=== PATIENT | female | born 1995 | race Caucasian/White ===

== ENCOUNTER 2017-04-02 08:17 | Emergency (ER) | payer OTHER ==
[~2017-04-02] VITALS: Ht 165.1 cm; Wt 111.4 kg
[2017-04-02] MEDS ORDERED: NS 1,000 ML IV ONE (10:00)
[2017-04-02] MEDS ORDERED: ONDANSETRON 4MG/2ML VIAL (J2405) IV ONE (10:00)
[2017-04-02 10:37] LABS: ANION GAP 9 MEQ/L (8-16); BLOOD UREA NITROGEN 6 MG/DL (7-18); CALCIUM LEVEL 8.6 MG/DL (8.5-10.1); CARBON DIOXIDE LEVEL 24 MEQ/L (21-32); CHLORIDE LEVEL 104 MEQ/L (98-107); CREATININE FOR GFR 0.74 MG/DL (0.55-1.02); GLUCOSE, FASTING 102 MG/DL (70-105); HCG, SERUM QUANTITATIVE < 1.0 MIU/ML; SODIUM LEVEL 137 MEQ/L (136-145)
[2017-04-02 10:42] LABS: BASO % 0.6 % (0.0-1.0); EOS # 0.1 10^3/uL (0.0-0.50); EOS % 1.1 % (0.0-3.0); LYMPH # 1.2 10^3/uL (1.5-6.5); LYMPH % 16.5 % (24.0-44.0); MEAN CORPUSCULAR HEMOGLOBIN 29.7 pg (27.0-33.0); MEAN CORPUSCULAR HGB CONC 33.9 g/dl (32.0-36.5); MEAN CORPUSCULAR VOLUME 87.6 fl (80.0-96.0); MONO # 0.4 10^3/uL (0.0-0.8); MONO % 5.7 % (0.0-5.0); NEUTROPHILS # 5.3 10^3/uL (1.8-7.7); NEUTROPHILS % 75.8 % (36.0-66.0); PLATELET COUNT, AUTOMATED 340 10^3/uL (150-450); RED CELL DISTRIBUTION WIDTH 12.6 % (11.5-14.5)
[2017-04-02 11:48] VITALS: BP 118/53
--- NOTE | 2017-04-02 11:52 | REP ---
PA and lateral chest: Comparison is 12/30/2014. The lung dick are clear. The cardiac size is normal The esteban, mediastinum, and bony thorax are unremarkable. Impression: Negative PA and lateral chest. Signed by Leo Helm MD 04/02/2017 11:44 A
[2017-04-02] MEDS ORDERED: ZOFR4TAB3 PO (12:04)
[2017-04-02] MEDS ORDERED: TESS100C PO (12:04)
== END 2017-04-02 12:38 | disposition home or self-care (01) ==
LOC: M ED 08:17
DX: J06.9 Acute upper respiratory infection, unspecified (principal); R11.2 Nausea with vomiting, unspecified; E66.9 Obesity, unspecified; Z88.0 Allergy status to penicillin
CPT/HCPCS: 71020; 80048; 84702; 85025; 87804; 96361; 96374; 99283; J2405

== ENCOUNTER 2019-10-22 22:03 | Observation (INO) | payer OTHER ==
[~2019-10-22] VITALS: Ht 165.1 cm; Wt 98.0 kg
[~2019-10-22 22:03] MED LIST: TESS100C PO; ZOFR4TAB14 PO
[2019-10-22] MEDS ORDERED: BUSP10TA PO (22:14)
[2019-10-22] MEDS ORDERED: SERO50TA PO (22:14)
[2019-10-22] MEDS ORDERED: QUET1TAB7 PO (22:14)
[2019-10-22] MEDS ORDERED: SERT50TA29 PO (22:14)
[2019-10-22] MEDS ORDERED: NS 1,000 ML IV ONE (22:30)
[2019-10-22 22:32] LABS: BASO % 0.4 % (0.0-1.0); EOS % 0.5 % (0.0-3.0); HEMATOCRIT 41.7 % (36.0-47.0); HEMOGLOBIN 13.3 g/dl (12.0-15.5); LYMPH # 2.5 10^3/uL (1.5-5.0); MEAN CORPUSCULAR HEMOGLOBIN 26.4 pg (27.0-33.0); MEAN CORPUSCULAR HGB CONC 31.9 g/dl (32.0-36.5); MEAN CORPUSCULAR VOLUME 82.7 fl (80.0-96.0); MONO # 0.5 10^3/uL (0.0-0.8); MONO % 6.6 % (0.0-5.0); NEUTROPHILS # 4.6 10^3/uL (1.5-8.5); NEUTROPHILS % 60.1 % (36.0-66.0); PLATELET COUNT, AUTOMATED 338 10^3/uL (150-450); RED BLOOD COUNT 5.04 10^6/uL (4.00-5.40); WHITE BLOOD COUNT 7.7 10^3/uL (4.0-10.0)
[2019-10-22 22:49] LABS: HCG, SERUM QUALITATIVE NEGATIVE (NEGATIVE)
[2019-10-22 23:04] LABS: ACETAMINOPHEN LEVEL < 2.0 UG/ML (10.0-30.0); ALBUMIN 4.5 GM/DL (3.2-5.2); ALT/SGPT 13 U/L (12-78); BILIRUBIN,DIRECT 0.1 MG/DL (0.0-0.2); BILIRUBIN,TOTAL 0.4 MG/DL (0.2-1.0); BLOOD UREA NITROGEN 7 MG/DL (7-18); CARBON DIOXIDE LEVEL 20 MEQ/L (21-32); CHLORIDE LEVEL 109 MEQ/L (98-107); CPK CREATINE PHOSPHOKINASE 143 U/L (26-192); CREATININE FOR GFR 0.98 MG/DL (0.55-1.30); ETHYL ALCOHOL (ETHANOL) < 0.003 % (0.000-0.010); GLOMERULAR FILTRATION RATE > 60.0 (>60); GLUCOSE, FASTING 95 MG/DL (70-100); POTASSIUM SERUM 3.6 MEQ/L (3.5-5.1); SALICYLATE LEVEL < 1.7 MG/DL (5.0-30.0); SODIUM LEVEL 141 MEQ/L (136-145); THYROID STIMULATING HORMONE 0.846 uIU/ML (0.358-3.740); TOTAL PROTEIN 7.9 GM/DL (6.4-8.2)
[2019-10-23] MEDS: NS 1,000 ML IV SCH ×5 (00:27→23:55)
[2019-10-23] MEDS ORDERED: ONDANSETRON 4MG/2ML VIAL (J2405 PER 1MG) IV ONE (00:45)
[2019-10-23] MEDS ORDERED: ONDANSETRON 4MG/2ML VIAL (J2405 PER 1MG) IV PRN (00:45)
[2019-10-23 00:59] LABS: AMPHETAMINES LEVEL URINE NEGATIVE (NEGATIVE); BARBITURATES URINE NEGATIVE (NEGATIVE); BENZODIAZEPINES URINE NEGATIVE (NEGATIVE); CANNABINOIDS URINE NEGATIVE (NEGATIVE); COCAINE METABOLITE URINE NEGATIVE (NEGATIVE); METHADONE URINE NEGATIVE (NEGATIVE); OPIATES URINE NEGATIVE (NEGATIVE); PHENCYCLIDINE URINE NEGATIVE (NEGATIVE)
[2019-10-23 02:10] VITALS: BP 126/70
[2019-10-23 06:00] VITALS: BP 125/58
--- NOTE | 2019-10-23 08:07 | HPE ---
DATE OF ADMISSION: 10/22/2019 CHIEF COMPLAINT: Drug overdose. HISTORY OF PRESENT ILLNESS: 23-year-old female with history of depression who presented to the emergency room after ingesting thirty tablets of Zoloft 50 mg each as well as a handful of ibuprofen unknown amount at around 9:30 p.m. this evening. The patient says, "I am just upset about everything" and speaking about her boyfriend who is the father of one of her two children and says that things have been tough. The patient called the suicide hot line at 6:00 p.m. this evening and was on the phone with them until 8:00 p.m. while she was driving around with the two children in the back seat of her car. She then completed the call and proceeded to go to her home. The state police and local police were alerted and they had arrived at the residence. She was found in the bedroom after ingesting thirty tablets of Zoloft and ibuprofen. The patient says that she was just trying to go to sleep, took her medications, the whole bottle of Zoloft. She says that she had some nausea and vomiting upon arrival of the EMS and to coming into the ER. The patient denies any homicidal tendencies. EKG showed no prolonged QT and was sinus rhythm with a ventricular rate of 95. Poison Control recommended overnight admission, telemetry monitoring, as well as, IV fluid hydration. The patient denied fever or chills. Complained of increase in her low mood and depression due to "everything". Denied dysuria, urgency or frequency, fever, flank pain, chills. The hospitalist was asked to admit for suicidal attempt due to drug ingestion of Zoloft as well as ibuprofen. PAST MEDICAL HISTORY: 1. Depression. 2. Pseudoseizures. PAST SURGICAL HISTORY: 1. section. 2. Cholecystectomy. 3. Adenoidectomy. 4. Tonsillectomy. 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 HOME MEDICATIONS: - Tessalon Perles 200 mg every 8 hours as needed - buspirone 10 mg daily - Zofran 4 mg every 6 hours as needed - quetiapine fumarate 25 mg daily - Seroquel 50 mg daily - Sertraline 50 mg daily - ibuprofen as needed FAMILY HISTORY: Mother and father are alive, unknown medical problems. REVIEW OF SYSTEMS: Per history of present illness (HPI). 12 point system otherwise negative. PHYSICAL EXAMINATION: Temperature 98.3, pulse 100, respiratory rate 18, blood pressure 129/60, 98% on room air. Generally, the patient is awake, alert and oriented to person, place and time. Answering questions appropriately. She is cooperative, in no respiratory distress. No use of respiratory accessory muscles. No conversational dyspnea. No jugular venous distention (JVD) or thyromegaly. No cervical lymphadenopathy. She is currently retching. Lungs are clear to auscultation. No wheezing, rales or rhonchi. Heart: S1, S2. Sinus rhythm. Abdomen: Soft. Nontender. Nondistended. Positive bowel sounds. Extremities: No cyanosis, clubbing or pitting edema. EKG: Sinus rhythm, ventricular rate 95 QTc 406. LABORATORY DATA: White count 7.7, hemoglobin 13, hematocrit 41, platelet count 338. Sodium 141, potassium 3.6, chloride 109, bicarbonate 20, BUN 7, creatinine 0.98, glucose 95, calcium 9, total bilirubin 0.4, direct bilirubin 0.1, AST 10, ALT 13, alkaline phosphatase 74, total CK 143, total protein 7.9, albumin 4.5, TSH 0.846. HCG is negative. Toxicology screen with salicylate less than 1.7, acetaminophen less than 2, ethyl alcohol less than 0.003, otherwise negative. ASSESSMENT AND PLAN: This is a 23-year-old female with history of depression, pseudoseizures, adenoidectomy, tonsillectomy, and cholecystectomy, who presents after speaking with a suicide hot line for 2 hours and subsequent ingestion of 30 tablets of Zoloft 50 mg each as well as ibuprofen unknown amount. EKG was unremarkable. The patient is being admitted for suicide attempt due to intentional drug overdose. IMPRESSION: 1. Suicide attempt with intentional drug overdose due to severe depression. The patient has no homicidal tendencies. She is currently on suicidal precautions with a sitter. She is on IV fluids. Poison Control has been contacted. She is admitted to telemetry. No changes in EKG at this time. 2. Severe depression. Off of the Zoloft for now due to recent intentional drug overdose. Will defer to psychiatrist once medically stable and [facility] admission. 3. History of pseudoseizures. No acute episodes. 4. Deep vein thrombosis (DVT) prophylaxis with compression stockings. CODE STATUS: Full code. MTDD
--- NOTE | 2019-10-23 11:46 | MHCRPDOC ---
[facility] Consultation Consultation Consult Jonathan eMlendez MRN: N/A Date of : N/A Date of Service: 10/23/2019 Chief Complaint Consultation for safety. History of Present Illness The patient a 23-year-old woman presents after overdosing on trazodone and Prozac among many other medications. She reports having difficulty with her boyfriend and her several children. 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 She continues to report that she has difficulty coping with this and has become more stressed and unable to sleep. She reports she took the overdose suddenly and then sought care. Review Of Systems Depression: As above. Anxiety: As above. Laila: The patient denies any episodes of euphoria/dysphoria associated with decreased need for sleep, hedonism, talkatively or impulsivity lasting longer than 5 days. Psychotic: The patient denies any experiences of auditory or visual hallucinations. They deny any episodes of paranoia or delusional thinking in the past Trauma: The patient denies any traumatic events associated with nightmares or intrusive thoughts. Borderline: Not screened at this time. Past Psychiatric History Has a reported history of 1 previous admission [facility] when she was younger for an overdose, goes to [facility] and sees a therapist and a photography colorist. Hstory reveals a more recent admission to [facility]. Family Psychiatric History The patient denies/is unaware any history of mental health history including addictions and suicide. 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 She does not work. She had previously worked in various jobs and has stopped. She graduated high school. No legal history. Denies any history of trauma or abuse. Denies any significant substance use, tobacco, cannabis or otherwise. Medical History No past medical history that is significant at this time, currently being worked up for potential seizure disorder. Allergies See below Mental Status Examination General: Well dressed with good hygiene Speech: Spontaneous and fluid Thought processes: Linear and logical MSK: Smooth and coordinated gait, no signs of tremors or involuntary orofacial movements Thought content: Interested in avoiding admission Abstract reasoning, and computation: Intact Description of associations: Intact Description of abnormal or psychotic thoughts: Denies any suicidal or homicidal ideation. Denies any auditory or visual hallucinations. Does not appear to be responding to internal stimuli. Does not appear to be endorsing any bizarre or paranoid ideation. Judgment: Limited Insight: Limited Orientation: Alert and orientated 3 Cognition: Grossly normal Recent and remote memory: Intact Attention span and concentration: Intact Fund of knowledge: Adequate Mood: "okay" Affect: Mildly dysthymic Diagnoses Unspecified depressive disorder. Assessment and Plan Recommend at this time for patient to be admitted to /inpatient mental health once she is medically cleared. She will need her EEG and other inpatient workup completed prior to admission, however, she will likely be under 9.39 legal status that will need to be filled up by the medical attending prior to her being placed in . She is not necessarily interested in treatment, however, it appears that her poor insight likely led her to the situation. Disposition Admission to [facility] once she is medically cleared. Time Spent 30 minutes. Vital Signs Vital Signs Date Time Temp Pulse Resp B/P (MAP) Pulse Ox O2 Delivery O2 Flow Rate FiO2 10/23/19 06:00 98.0 74 14 125/58 (80) 96 Room Air Laboratory Data 24H Labs Laboratory Tests 2 10/22/19 22:25: Immature Granulocyte % (Auto) 0.4, Neutrophils (%) (Auto) 60.1, Lymphocytes (%) (Auto) 32.0, Monocytes (%) (Auto) 6.6H, Eosinophils (%) (Auto) 0.5, Basophils (%) (Auto) 0.4, Neutrophils # (Auto) 4.6, Lymphocytes # (Auto) 2.5, Monocytes # (Auto) 0.5, Eosinophils # (Auto) 0.0, Basophils # (Auto) 0.0, Nucleated Red Blood Cells % (auto) 0.0, Anion Gap 12, Glomerular Filtration Rate > 60.0, Calcium Level 9.0, Total Bilirubin 0.4, Direct Bilirubin 0.1, Aspartate Amino Transf (AST/SGOT) 10, Alanine Aminotransferase (ALT/SGPT) 13, Alkaline Phosphatase 74, Total Creatine Kinase 143, Total Protein 7.9, Albumin 4.5, Albumin/Globulin Ratio 1.32, Thyroid Stimulating Hormone (TSH) 0.846, Human Chorionic Gonadotropin, Qual NEGATIVE, Salicylates Level < 1.7L, Urine Opiates Screen NEGATIVE, Urine Methadone Screen NEGATIVE, Acetaminophen Level < 2.0L, Urine Barbiturates Screen NEGATIVE, Urine Phencyclidine Screen NEGATIVE, Urine Amphetamines Screen NEGATIVE, Urine Benzodiazepines Screen NEGATIVE, Urine Cocaine Metabolite Screen NEGATIVE, Urine Cannabinoids Screen NEGATIVE, Ethyl Alcohol Level < 0.003 10/22/19 22:33: Bedside Glucose (Misc Panel) 96 10/23/19 06:19: Magnesium Level 2.0 Home Medications Current Medications Current Medications Medications (Trade) Dose Ordered Sig/Mera Route PRN Reason Start Time Stop Time Status Last Admin Dose Admin Home Med (Med Rec Complete!) ASDIRECTED XX 10/23/19 02:15 10/23/19 02:16 DC Ondansetron HCl (ZOFRAN INJection) 4 mg Q4HP PRN IV NAUSEA OR VOMITING 10/23/19 00:45 Sodium Chloride 1,000 ml @ 150 mls/hr Q6H40M IV 10/23/19 00:15 10/23/19 06:28 Scheduled Buspirone HCl (Buspirone HCl) 10 Mg Tablet, 10 MG PO BID, (Reported) Quetiapine Fumarate (Quetiapine Fumarate) 25 Mg Tablet, 25 MG PO QHS, (Reported) Sertraline HCl (Sertraline HCl) 50 Mg Tablet, 50 MG PO DAILY, (Reported) Allergies Coded Allergies: escitalopram (Verified Allergy, Severe, 10/22/19) Penicillins (Unverified Allergy, Unknown, 10/22/19) SAUL LUJAN DO Oct 23, 2019 11:46
--- NOTE | 2019-10-23 13:42 | ECGEPIP ---
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 No significant change compared with 10/22/2019 at 2229 hrs. Electronically Signed on 10-23-2019 13:41:56 EDT by Benito Faye
[2019-10-23 14:00] VITALS: BP 108/63
--- NOTE | 2019-10-23 18:13 | REPVR ---
PROCEDURE INFORMATION: Exam: CT Head Without Contrast Exam date and time: 10/23/2019 6:03 PM Age: 23 years old Clinical indication: Altered mental status/memory loss; Additional info: Tonic clonic movements with intermittent AMS TECHNIQUE: Imaging protocol: Computed tomography of the head without contrast. Radiation optimization: All CT scans at this facility use at least one of these dose optimization techniques: automated exposure control; mA and/or kV adjustment per patient size (includes targeted exams where dose is matched to clinical indication); or iterative reconstruction. COMPARISON: No relevant prior studies available. FINDINGS: Brain: No acute intracranial hemorrhage, cerebral edema, or midline shift. Ventricles: No hydrocephalus. Bones/joints: No acute fracture. Sinuses: No acute sinusitis. Mastoid air cells: Visualized mastoid air cells are well aerated. Soft tissues: Unremarkable. IMPRESSION: No acute intracranial abnormality. Electronically signed by: Lawrence Moore On 10/23/2019 18:13:17 PM
[2019-10-23 18:34] LABS: MEAN CORPUSCULAR HEMOGLOBIN 26.5 pg (27.0-33.0); MEAN CORPUSCULAR VOLUME 82.9 fl (80.0-96.0); PLATELET COUNT, AUTOMATED 266 10^3/uL (150-450); RED BLOOD COUNT 4.22 10^6/uL (4.00-5.40)
[2019-10-23 18:37] LABS: HEMOGLOBIN 11.2 g/dl (12.0-15.5)
[2019-10-23 18:52] LABS: BLOOD UREA NITROGEN 6 MG/DL (7-18); CALCIUM LEVEL 8.4 MG/DL (8.5-10.1); CARBON DIOXIDE LEVEL 22 MEQ/L (21-32); CHLORIDE LEVEL 115 MEQ/L (98-107); CREATININE FOR GFR 0.84 MG/DL (0.55-1.30); GLOMERULAR FILTRATION RATE > 60.0 (>60); GLUCOSE, FASTING 103 MG/DL (70-100); MAGNESIUM LEVEL 1.9 MG/DL (1.8-2.4); POTASSIUM SERUM 3.7 MEQ/L (3.5-5.1); SODIUM LEVEL 142 MEQ/L (136-145)
--- NOTE | 2019-10-23 19:15 | IPNPDOC ---
Text Note Date of Service The patient was seen on 10/23/19. NOTE S: Pt examined at bedside. Doing well this am and stable with sitter in room. Denied thoughts to harm self and others, and states she is "tired of not feeling better" and reports she ingested 30 pills of her Seroquel, and 1 bottle of Motrin to kill herself. 4-month old and 3 year old kids were at home. Pt called suicide hotline to inform them of her wishes for the kids. Police brought her to the hospital, and other police remained behind with her children until her boyfriend arrived to care for the children. Was Pending dc to [facility], but noted to have spastic activity later in the day. CT head negative. EEG & neuro consult pending. PE: Vitals: see below General: NAD, A&Ox3, resting comfortably HEENT: NCAT, EOMI, anicteric sclera, MMM CV: RRR, no murmurs or clicks or rub. No edema RESP: CTAB, no w/r/r/ ABD: soft, NT, ND. Benign EXTREMITIES: 2+ radial pulses b/l, able to move all extremities NEURO: no focal deficits or acute changes PSYCH: depressed mood, flat affect A/P: This is 23-year-old female on psych meds at home (BuSpar, quetiapine, sertraline) who tried to overdose as a suicide attempt but taking 30 pills of her Seroquel and a bottle of Motrin. She is brought in by police and stable since admission, was pending dc to [facility], but later in the day found to have spastic movements. 1. Suicide attempt - 30 pills of her Seroquel and a bottle of Motrin - tox screen & EToh negative. Supportive care with IVF - Poison control reportedly notified on admission - Home meds include BuSpar, quetiapine, sertraline - On suicide precautions, sitter at bedside -We'll discharge to [facility] when medically stable 2. Spastic activity -Noted to have tonic-clonic like movements while awaiting discharge to [facility] - hx of pseudoseizures -We'll hold [facility] discharge until seen by neurology. - Dr. Ang consulted, appreciate input - Head CT negative. EEg pending - r/o seizure - placed on seizure precautions; neurochecks DVT ppx: mechanical DISPO: pending neuro c/s & clinical improvement. D/C to [facility] when stable. VS,Fishbone, I+O VS, Fishbone, I+O Laboratory Tests 10/22/19 22:25 10/23/19 18:19 Vital Signs Date Time Temp Pulse Resp B/P (MAP) Pulse Ox O2 Delivery O2 Flow Rate FiO2 10/23/19 14:00 99.1 99 20 108/63 (78) 98 Room Air I&O- Last 24 Hours up to 6 AM 10/23/19 06:00 Intake Total 1460 ml Output Total 100 ml Balance 1360 ml GME ATTESTATION GME ATTESTATION My faculty preceptor for this patient encounter was physically present during the encounter and was fully available. All aspects of the patient interview, examination, medical decision making process, and medical care plan development were reviewed and approved by the faculty preceptor. The faculty preceptor is aware and concurs with the plan as stated in the body of this note and will attest to such by his/her cosignature. ATTENDING NOTE I, Radha Alvarado, have independently examined this patient and performed my own physical exam, as well as reviewed the documentation and edited where necessary. I have discussed in detail with the resident / student the findings and plan of treatment as documented by the resident / student and edited their note. I agree with their findings and treatment plan and have edited their documentation. We were going to discharge her to the [facility] but she had seizure like activity this afternoon that prompted more investigations but later, she reported a history of pseudoseizures. In my discussion with Dr. Ang, will get a spot EEG and thereafter, proceed with [facility] discharge unless epileptiform activity is identified that justifies pharmacotherapy. SHIRLENE TOLBERT DO Oct 23, 2019 19:15 RADHA ALVARADO MD Oct 23, 2019 19:40
--- NOTE | 2019-10-23 20:35 | ECGEPIP ---
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
[2019-10-23 22:00] VITALS: BP 109/64
[2019-10-23] MEDS ORDERED: RAMELTEON 8 MG TAB (ROZEREM) PO PRN (23:45)
[2019-10-24 00:20] LABS: HEMATOCRIT 33.2 % (36.0-47.0); HEMOGLOBIN 10.7 g/dl (12.0-15.5)
[2019-10-24 06:00] VITALS: BP 108/65
[2019-10-24 06:16] LABS: HEMATOCRIT 32.1 % (36.0-47.0); HEMOGLOBIN 10.1 g/dl (12.0-15.5); MEAN CORPUSCULAR HEMOGLOBIN 26.4 pg (27.0-33.0); MEAN CORPUSCULAR HGB CONC 31.5 g/dl (32.0-36.5); MEAN CORPUSCULAR VOLUME 83.8 fl (80.0-96.0); PLATELET COUNT, AUTOMATED 246 10^3/uL (150-450); RED BLOOD COUNT 3.83 10^6/uL (4.00-5.40); WHITE BLOOD COUNT 5.4 10^3/uL (4.0-10.0)
[2019-10-24 06:37] LABS: BLOOD UREA NITROGEN 7 MG/DL (7-18); CALCIUM LEVEL 8.2 MG/DL (8.5-10.1); CARBON DIOXIDE LEVEL 21 MEQ/L (21-32); CHLORIDE LEVEL 115 MEQ/L (98-107); CREATININE FOR GFR 0.76 MG/DL (0.55-1.30); GLOMERULAR FILTRATION RATE > 60.0 (>60); GLUCOSE, FASTING 97 MG/DL (70-100); POTASSIUM SERUM 3.6 MEQ/L (3.5-5.1); SODIUM LEVEL 143 MEQ/L (136-145)
[2019-10-24] MEDS: NS 1,000 ML IV SCH ×2 (10:30→15:21)
[2019-10-24 14:00] VITALS: BP 106/73
--- NOTE | 2019-10-24 19:00 | DS.PDOC ---
Discharge Summary General Date of Admission Oct 22, 2019 at 22:04 Date of Discharge 10/24/2019 Attending Physician: YOUSIF ALVARADO MD Specialist/Consultants Involve: SAUL LUJAN DO Discharge Summary PROCEDURES PERFORMED DURING STAY: None. DISCHARGE DIAGNOSES: 1. Suicide attempt 2. Spastic activity 3. Hx of depression/anxiety 4. Hx of pseudoseizures HISTORY OF PRESENT ILLNESS: This is 23-year-old female on psych meds at home (BuSpar, quetiapine, sertraline) who tried to overdose as a suicide attempt by taking 30 pills of her Seroquel and a bottle of Motrin. Was admitted per discussions with poison control and for monitoring. Sitter at bedside. HOSPITAL COURSE: When assess next am, she denied thoughts to harm self and others, and stated she is "tired of not feeling better" and admitted to ingesting the meds in attempt to kill herself. Per pt: 4-month old and 3 year old kids were at home; pt called suicide hotline to inform them of her wishes for the kids; Police brought her to the hospital, and other police remained behind with her children until her boyfriend arrived to care for the children. Pt was given supportive care & had negative tox screen & EtOH level. Pt was otherwise hemodynamically stable and was pending dc to [facility], but noted to have brief spastic activity later in the day. Per discussions with Neurology, head imaging was done, CT head negative, and pt refused to get EEG done, but admitted to a hx of pseudoseizure. She remained stable with no further episodes of spasticity. She was medically stable & sent to [facility]. DISCHARGE MEDICATIONS: Please see below. ALLERGIES: Please see below. PHYSICAL EXAMINATION ON DISCHARGE: Vitals: see below General: NAD, A&Ox3, sitting comfortably speaking full sentences HEENT: NCAT, EOMI, anicteric sclera, MMM CV: RRR, no murmurs or clicks or rub. No edema RESP: CTAB, no w/r/r/ ABD: soft, NT, ND. Benign EXTREMITIES: 2+ radial pulses b/l, able to move all extremities NEURO: no focal deficits or acute changes PSYCH: depressed mood, flat affect, agitated LABORATORY DATA: Please see below. IMAGING: * 10/23/[address]: No acute intracranial abnormality. PROGNOSIS: good ACTIVITY: As tolerated. DIET: as tolerated DISPOSITION: [facility] DISCHARGE INSTRUCTIONS: 1. Follow-up with PCP within a week 2. Return to ER for emergency DISCHARGE CONDITION: Stable. TIME SPENT ON DISCHARGE: Greater than 35 minutes. Vital Signs/I&Os Vital Signs Date Time Temp Pulse Resp B/P (MAP) Pulse Ox O2 Delivery O2 Flow Rate FiO2 10/24/19 14:00 98.0 64 17 106/73 (84) 98 Room Air I&O- Last 24 Hours up to 6 AM 10/24/19 05:59 Intake Total 6180 ml Output Total 900 ml Balance 5280 ml Laboratory Data Labs 24H Laboratory Tests 2 10/24/19 05:41: Nucleated Red Blood Cells % (auto) 0.0, Anion Gap 7L, Glomerular Filtration Rate > 60.0, Calcium Level 8.2L CBC/BMP Laboratory Tests 10/24/19 00:02 10/24/19 05:41 Discharge Medications Scheduled Buspirone HCl (Buspirone HCl) 10 Mg Tablet, 10 MG PO BID for anxiety Quetiapine Fumarate (Quetiapine Fumarate) 25 Mg Tablet, 25 MG PO QHS for mood Sertraline HCl (Sertraline HCl) 50 Mg Tablet, 50 MG PO DAILY for mood Scheduled PRN Hydroxyzine HCl (Hydroxyzine HCl) 25 Mg Tablet, 25 MG PO Q4HP PRN for ANXIETY Trazodone HCl (Trazodone HCl) 50 Mg Tablet, 50 MG PO QHSP PRN for INSOMNIA Allergies Coded Allergies: escitalopram (Verified Allergy, Severe, 10/22/19) Penicillins (Unverified Allergy, Unknown, 10/22/19) GME ATTESTATION GME ATTESTATION My faculty preceptor for this patient encounter was physically present during the encounter and was fully available. All aspects of the patient interview, examination, medical decision making process, and medical care plan development were reviewed and approved by the faculty preceptor. The faculty preceptor is aware and concurs with the plan as stated in the body of this note and will attest to such by his/her cosignature. SHIRLENE TOLBERT DO Oct 24, 2019 19:00
== END 2019-10-24 17:00 ==
LOC: EDBD 22:03 → M ED 22:03 → M ED INP 22:04 → ENRESERVTM 10-23 01:36 → ENRESERVDT 10-23 01:36 → M MSPAV 10-23 02:09
PROVIDERS: ADMIT General Practice; ATTEND Internal Medicine
DX: T43.592A Poisoning by other antipsychotics and neuroleptics, intentional self-harm, initial encounter (principal); T39.312A Poisoning by propionic acid derivatives, intentional self-harm, initial encounter; R25.8 Other abnormal involuntary movements; F41.9 Anxiety disorder, unspecified; F32.9 Major depressive disorder, single episode, unspecified; G47.00 Insomnia, unspecified; J45.909 Unspecified asthma, uncomplicated; Z79.899 Other long term (current) drug therapy; Z88.0 Allergy status to penicillin; Z88.8 Allergy status to other drugs, medicaments and biological substances
CPT/HCPCS: 36415; 70450; 80048; 80076; 80307; 82550; 83735; 84443; 84703; 85014; 85018; 85025; 85027; 93005; 93041; 94760; 96361; 96374; 96376; 99285; G0480; J2405

== ENCOUNTER 2019-10-24 14:47 | Inpatient (IN) | payer OTHER ==
[~2019-10-24 14:47] MED LIST changes: +BUSP10TA PO; +QUET1TAB7 PO; +SERO50TA PO; +SERT50TA29 PO
[2019-10-24] MEDS ORDERED: ACETAMINOPHEN TAB 650MG DOSE (2X325MG) PO PRN (15:00)
[2019-10-24] MEDS ORDERED: MOM 30ML SUSPENSION UDC PO PRN (15:00)
[2019-10-24] MEDS ORDERED: MAALOX 30 ML SUSP *UDC PO PRN (15:00)
--- NOTE | 2019-10-24 17:11 | IPNPDOC ---
Text Note Date of Service The patient was seen on 10/24/19. NOTE code 25 was called in to [facility] as patient was lying on the floor very agitated, pulling and hitting staff, patient was seen and evaluated as patient is very agitated and is risk to herself and others. four points restraints were ordered. The nursing staff called the on-call psychiatrist regarding patient's updated status. Pharmacological intervention as per psych. THO BLACKWELL MD Oct 24, 2019 17:11
[2019-10-24 17:30] VITALS: BP 151/74
[2019-10-24 17:45] VITALS: BP 150/83
[2019-10-24 18:00] VITALS: BP 148/83
[2019-10-24 18:15] VITALS: BP 145/81
[2019-10-24 18:30] VITALS: BP 140/72
[2019-10-24 18:45] VITALS: BP 142/74
[2019-10-25] MEDS: traZODone 50 MG TAB PO PRN ×2 (00:24→23:08)
[2019-10-25 06:20] VITALS: BP 129/64
[2019-10-25] MEDS ORDERED: SERTRALINE HCL 50 MG TAB PO SCH (09:00)
[2019-10-25 14:15] VITALS: BP 145/71
[2019-10-25 16:10] VITALS: BP 117/58
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
[2019-10-25] MEDS: hydrOXYzine 25 MG TAB PO PRN (19:09)
[2019-10-25] MEDS: busPIRone 10 MG TAB PO SCH (20:31)
[2019-10-25] MEDS: QUEtiapine FUMARATE 25 MG TAB PO SCH (23:08)
[2019-10-26 06:29] VITALS: BP 119/74
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
[2019-10-26] MEDS: busPIRone 10 MG TAB PO SCH ×2 (08:40→21:42)
[2019-10-26] MEDS: SERTRALINE HCL 50 MG TAB PO SCH (08:40)
[2019-10-26] MEDS: hydrOXYzine 25 MG TAB PO PRN (11:25)
[2019-10-26 16:03] VITALS: BP 132/65
[2019-10-26] MEDS: QUEtiapine FUMARATE 25 MG TAB PO SCH (21:42)
[2019-10-26] MEDS: traZODone 50 MG TAB PO PRN (21:43)
--- NOTE | 2019-10-27 02:17 | MHIPN ---
DATE: 10/26/2019 The patient today actually refused to talk to me, and so I am not able to complete an evaluation.
[2019-10-27 06:30] VITALS: BP 117/58
[2019-10-27] MEDS: SERTRALINE HCL 50 MG TAB PO SCH (09:00)
[2019-10-27] MEDS: busPIRone 10 MG TAB PO SCH (09:00)
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
[2019-10-27] MEDS ORDERED: SERT50TA29 PO (10:20)
[2019-10-27] MEDS ORDERED: HYDR-3363 PO (10:20)
[2019-10-27] MEDS ORDERED: TRAZ-252 PO (10:20)
[2019-10-27] MEDS ORDERED: QUET1TAB7 PO (10:20)
[2019-10-27] MEDS ORDERED: BUSP10TA PO (10:20)
[2019-10-27 15:00] VITALS: BP 133/96
== END 2019-10-27 15:40 | disposition home or self-care (01) | DRG 754 ==
LOC: M PSY 17:00
PROVIDERS: ADMIT Psychiatry & Neurology Addiction Medicine; ATTEND Psychiatry & Neurology Addiction Medicine
DX: F32.9 Major depressive disorder, single episode, unspecified (principal); F60.3 Borderline personality disorder; Z79.899 Other long term (current) drug therapy; Z88.0 Allergy status to penicillin; Z88.8 Allergy status to other drugs, medicaments and biological substances

== ENCOUNTER 2019-12-30 18:38 | Emergency (ER) | payer OTHER ==
[~2019-12-30] VITALS: Ht 165.1 cm; Wt 105.3 kg
[~2019-12-30 18:38] MED LIST changes: +HYDR-3363 PO; +TRAZ-252 PO
[2019-12-30 18:39] VITALS: BP 121/76
[2019-12-30] MEDS ORDERED: BACT800T5 PO (19:02)
[2019-12-30] MEDS ORDERED: BACTRIM 160MG/800MG DS TAB PO ONE (19:15)
== END 2019-12-30 19:16 | disposition home or self-care (01) ==
LOC: M ED 18:38
DX: L03.115 Cellulitis of right lower limb (principal); Z88.0 Allergy status to penicillin; Z88.8 Allergy status to other drugs, medicaments and biological substances; R56.9 Unspecified convulsions; J45.909 Unspecified asthma, uncomplicated; K21.9 Gastro-esophageal reflux disease without esophagitis; F41.9 Anxiety disorder, unspecified; F32.9 Major depressive disorder, single episode, unspecified; Z91.5 Personal history of self-harm; Z79.899 Other long term (current) drug therapy

== ENCOUNTER 2020-01-06 03:04 | Emergency (ER) | payer OTHER ==
[~2020-01-06] VITALS: Ht 165.1 cm; Wt 110.3 kg
[~2020-01-06 03:04] MED LIST changes: +BACT800T5 PO
[2020-01-06 03:36] LABS: BASO % 0.5 % (0.0-1.0); EOS # 0.1 10^3/uL (0.0-0.5); EOS % 1.8 % (0.0-3.0); HEMATOCRIT 40.6 % (36.0-47.0); HEMOGLOBIN 13.1 g/dl (12.0-15.5); LYMPH # 2.5 10^3/uL (1.5-5.0); MEAN CORPUSCULAR HEMOGLOBIN 27.8 pg (27.0-33.0); MEAN CORPUSCULAR HGB CONC 32.3 g/dl (32.0-36.5); MEAN CORPUSCULAR VOLUME 86.2 fl (80.0-96.0); MONO # 0.5 10^3/uL (0.0-0.8); MONO % 8.3 % (0.0-5.0); NEUTROPHILS # 3.2 10^3/uL (1.5-8.5); NEUTROPHILS % 50.1 % (36.0-66.0); PLATELET COUNT, AUTOMATED 304 10^3/uL (150-450); RED BLOOD COUNT 4.71 10^6/uL (4.00-5.40); WHITE BLOOD COUNT 6.3 10^3/uL (4.0-10.0)
[2020-01-06 04:03] LABS: ALT/SGPT 19 U/L (12-78); BLOOD UREA NITROGEN 12 MG/DL (7-18); CALCIUM LEVEL 9.4 MG/DL (8.5-10.1); CARBON DIOXIDE LEVEL 28 MEQ/L (21-32); CHLORIDE LEVEL 109 MEQ/L (98-107); CREATININE FOR GFR 1.05 MG/DL (0.55-1.30); GLOMERULAR FILTRATION RATE > 60.0 (>60); GLUCOSE, FASTING 97 MG/DL (70-100); POTASSIUM SERUM 4.6 MEQ/L (3.5-5.1); SODIUM LEVEL 144 MEQ/L (136-145)
[2020-01-06 04:04] LABS: ALBUMIN 3.9 GM/DL (3.2-5.2); BILIRUBIN,DIRECT < 0.1 MG/DL (0.0-0.2); BILIRUBIN,TOTAL 0.1 MG/DL (0.2-1.0); ETHYL ALCOHOL (ETHANOL) 0.128 % (0.000-0.010); TOTAL PROTEIN 7.8 GM/DL (6.4-8.2)
[2020-01-06 05:16] LABS: AMPHETAMINES LEVEL URINE NEGATIVE (NEGATIVE); BARBITURATES URINE NEGATIVE (NEGATIVE); BENZODIAZEPINES URINE NEGATIVE (NEGATIVE); CANNABINOIDS URINE NEGATIVE (NEGATIVE); COCAINE METABOLITE URINE NEGATIVE (NEGATIVE); METHADONE URINE NEGATIVE (NEGATIVE); OPIATES URINE NEGATIVE (NEGATIVE); PHENCYCLIDINE URINE NEGATIVE (NEGATIVE)
[2020-01-06 05:32] VITALS: BP 118/62
== END 2020-01-06 05:43 | disposition home or self-care (01) ==
LOC: M ED 03:04
DX: F10.120 Alcohol abuse with intoxication, uncomplicated (principal); F41.9 Anxiety disorder, unspecified; F32.9 Major depressive disorder, single episode, unspecified; Z79.899 Other long term (current) drug therapy; Z88.0 Allergy status to penicillin; Z88.8 Allergy status to other drugs, medicaments and biological substances
CPT/HCPCS: 36415; 80048; 80076; 80307; 84443; 85025; 93041; 94760; 99284; G0480

== ENCOUNTER → 2020-05-14 | Outpatient (REF) | payer OTHER ==
[2020-05-14 17:20] LABS: BASO % 0.8 % (0.0-1.0); EOS # 0.1 10^3/uL (0.0-0.5); EOS % 1.9 % (0.0-3.0); HEMATOCRIT 40.3 % (36.0-47.0); HEMOGLOBIN 12.9 g/dl (12.0-15.5); LYMPH # 1.7 10^3/uL (1.5-5.0); LYMPH % 34.4 % (24.0-44.0); MEAN CORPUSCULAR HEMOGLOBIN 28.5 pg (27.0-33.0); MONO # 0.4 10^3/uL (0.0-0.8); MONO % 7.7 % (0.0-5.0); NEUTROPHILS # 2.7 10^3/uL (1.5-8.5); PLATELET COUNT, AUTOMATED 284 10^3/uL (150-450); RED BLOOD COUNT 4.53 10^6/uL (4.00-5.40); WHITE BLOOD COUNT 4.8 10^3/uL (4.0-10.0)
[2020-05-14 17:35] LABS: ALBUMIN 3.7 GM/DL (3.2-5.2); ALT/SGPT 24 U/L (12-78); BILIRUBIN,TOTAL 0.3 MG/DL (0.2-1.0); BLOOD UREA NITROGEN 12 MG/DL (7-18); CALCIUM LEVEL 8.7 MG/DL (8.5-10.1); CARBON DIOXIDE LEVEL 25 MEQ/L (21-32); CHLORIDE LEVEL 107 MEQ/L (98-107); CHOLESTEROL LEVEL 204 MG/DL (<200); CHOLESTEROL RISK RATIO 4.636 (<5); CREATININE FOR GFR 0.88 MG/DL (0.55-1.30); GLOMERULAR FILTRATION RATE > 60.0 (>60); GLUCOSE, FASTING 87 MG/DL (70-100); HDL CHOLESTEROL 44 MG/DL (>40); LDL CHOLESTEROL 142 MG/DL (<100); NON-HDL-C 160 MG/DL; POTASSIUM SERUM 4.4 MEQ/L (3.5-5.1); SODIUM LEVEL 139 MEQ/L (136-145); TRIGLYCERIDES LEVEL 89 MG/DL (<150)
== END ==
LOC: M LAB REF 16:43
PROVIDERS: ATTEND Physician Assistant
DX: G40.909 Epilepsy, unspecified, not intractable, without status epilepticus (principal); Z68.41 Body mass index [BMI] 40.0-44.9, adult

== ENCOUNTER → 2020-06-28 | Outpatient (REF) | payer OTHER ==
[2020-06-28 13:16] LABS: HCG, SERUM QUALITATIVE POSITIVE (NEGATIVE)
== END ==
LOC: M LAB REF 12:23
PROVIDERS: ATTEND Physician Assistant Medical
DX: Z32.00 Encounter for pregnancy test, result unknown (principal)

== ENCOUNTER → 2020-07-21 | Outpatient (REF) | payer OTHER, MEDICAID | LOC: M PLALAB 11:24 | PROVIDERS: ATTEND Obstetrics & Gynecology | DX: Z12.4 Encounter for screening for malignant neoplasm of cervix (principal) ==

== ENCOUNTER → 2020-09-30 | Outpatient (REF) | payer OTHER, MEDICAID ==
[~2020-09-30] MED LIST changes: -QUET1TAB7 PO; +QUET25TA3 PO
[2020-09-30 15:22] LABS: CHLAMYDIA DNA AMPLIFICATION NEGATIVE (NEGATIVE); GC DNA AMPLIFICATION NEGATIVE (NEGATIVE)
== END ==
LOC: M SFHCWAGY 13:36
PROVIDERS: ATTEND Nurse Practitioner Women's Health
DX: Z11.3 Encounter for screening for infections with a predominantly sexual mode of transmission (principal)

== ENCOUNTER → 2020-10-05 | Outpatient (REF) | payer OTHER, MEDICAID ==
[2020-10-05 17:01] LABS: BASO % 0.6 % (0.0-1.0); EOS # 0.1 10^3/uL (0.0-0.5); EOS % 1.5 % (0.0-3.0); HEMATOCRIT 44.6 % (36.0-47.0); HEMOGLOBIN 14.4 g/dl (12.0-15.5); LYMPH # 1.7 10^3/uL (1.5-5.0); MEAN CORPUSCULAR HEMOGLOBIN 28.8 pg (27.0-33.0); MEAN CORPUSCULAR HGB CONC 32.3 g/dl (32.0-36.5); MEAN CORPUSCULAR VOLUME 89.2 fl (80.0-96.0); MONO # 0.4 10^3/uL (0.0-0.8); MONO % 6.6 % (2.0-8.0); NEUTROPHILS # 3.1 10^3/uL (1.5-8.5); NEUTROPHILS % 58.1 % (36.0-66.0); PLATELET COUNT, AUTOMATED 307 10^3/uL (150-450); WHITE BLOOD COUNT 5.3 10^3/uL (4.0-10.0)
[2020-10-05 17:09] LABS: ALBUMIN 4.3 GM/DL (3.2-5.2); ALT/SGPT 31 U/L (12-78); BILIRUBIN,TOTAL 0.4 MG/DL (0.2-1.0); BLOOD UREA NITROGEN 13 MG/DL (7-18); CALCIUM LEVEL 9.3 MG/DL (8.5-10.1); CARBON DIOXIDE LEVEL 28 MEQ/L (21-32); CHLORIDE LEVEL 105 MEQ/L (98-107); CHOLESTEROL LEVEL 211 MG/DL (<200); CHOLESTEROL RISK RATIO 4.688 (<5); CREATININE FOR GFR 0.83 MG/DL (0.55-1.30); GLOMERULAR FILTRATION RATE > 60.0 (>60); GLUCOSE, FASTING 80 MG/DL (70-100); HDL CHOLESTEROL 45 MG/DL (>40); LDL CHOLESTEROL 150 MG/DL (<100); NON-HDL-C 166 MG/DL; POTASSIUM SERUM 4.4 MEQ/L (3.5-5.1); SODIUM LEVEL 138 MEQ/L (136-145); TOTAL PROTEIN 7.9 GM/DL (6.4-8.2); TRIGLYCERIDES LEVEL 78 MG/DL (<150)
[2020-10-05 19:12] LABS: HEMOGLOBIN A1c 5.1 %
== END ==
LOC: M LAB REF 16:07
PROVIDERS: ATTEND Pediatrics
DX: Z68.41 Body mass index [BMI] 40.0-44.9, adult (principal)

== ENCOUNTER → 2021-01-18 | Outpatient (CLI) | payer OTHER, MEDICAID ==
[~2021-01-18] MED LIST changes: +ACET-683 PO; +IBUP-1022 PO; +QUET1TAB17 PO; -QUET25TA3 PO
[2021-01-18 15:36] LABS: HEMATOCRIT 41.5 % (36.0-47.0); HEMOGLOBIN 13.5 g/dl (12.0-15.5); MEAN CORPUSCULAR HEMOGLOBIN 29.3 pg (27.0-33.0); MEAN CORPUSCULAR HGB CONC 32.5 g/dl (32.0-36.5); MEAN CORPUSCULAR VOLUME 90.2 fl (80.0-96.0); PLATELET COUNT, AUTOMATED 267 10^3/uL (150-450); WHITE BLOOD COUNT 6.2 10^3/uL (4.0-10.0)
[2021-01-18 16:45] LABS: HIV 1&2 SCREEN CENTAUR NEGATIVE (NEGATIVE)
[2021-01-18 16:58] LABS: GC DNA AMPLIFICATION NEGATIVE (NEGATIVE)
== END ==
LOC: M PLALAB 12:47
PROVIDERS: ATTEND Advanced Practice Midwife
DX: O34.211 Maternal care for low transverse scar from previous cesarean delivery (principal); Z3A.00 Weeks of gestation of pregnancy not specified

== ENCOUNTER → 2021-02-05 | Outpatient (CLI) | payer OTHER ==
[~2021-02-05] MED LIST changes: -ACET-683 PO; -IBUP-1022 PO; -QUET1TAB17 PO; +QUET25TA3 PO
== END ==
LOC: M LAB 10:16
PROVIDERS: ATTEND Advanced Practice Midwife
DX: Z34.81 Encounter for supervision of other normal pregnancy, first trimester (principal)

== ENCOUNTER → 2021-04-22 | Outpatient (CLI) | payer OTHER ==
[~2021-04-22] MED LIST changes: +QUET1TAB17 PO; -QUET25TA3 PO
--- NOTE | 2021-04-22 13:55 | REP ---
INDICATION: ANATOMY COMPARISON: None. TECHNIQUE: Transabdominal obstetrical ultrasound with color Doppler evaluation. FINDINGS: Examination demonstrates a single live intrauterine in cephalic presentation. motion is identified by technologist. Placenta is noted anterior and grade 0 without evidence for placenta previa or abruption. Amniotic fluid volume is normal. Cervix measures 4.0 cm in length and appears closed.. Selected gestational age: 22 weeks 0 days with CLIFFORD 08/26/2021. Gestational age by current measurements 22 weeks 3 days with CLIFFORD 08/23/2021. FHR equals 150 beats per minute. BPD: 5.5 cm at 22 weeks 4 days HC: 19.4 cm at 21 weeks 5 days AC: 18.2 cm at 23 weeks 0 days FL: 3.8 cm at 22 weeks 2 days HL: 3.6 cm at 22 weeks 2 days HC/AC: 1.07 Estimated weight 518 grams (74thpercentile). Anatomical assessment demonstrates normal structures including cranium, cavum, cerebellum/posterior fossa, facial features, lungs, diaphragm, stomach, cord insertion/three-vessel cord, kidneys/bladder, and upper extremities. IMPRESSION: 1. Single live intrauterine in cephalic presentation demonstrating appropriate estimated weight and growth. 2. Limited evaluation of the choroid plexus, nose/lips, heart/ventricular outflow tracts, spine and extremities warrant re-evaluation and follow-up. <Electronically signed by Franklyn Cruz > 04/22/21 [id number]
== END ==
LOC: M RAD 11:48
PROVIDERS: ATTEND Advanced Practice Midwife
DX: O34.211 Maternal care for low transverse scar from previous cesarean delivery (principal); Z3A.22 22 weeks gestation of pregnancy

== ENCOUNTER → 2021-04-22 | Outpatient (REF) | payer OTHER ==
[2021-04-22 17:32] LABS: AMORPHOUS SEDIMENT SMALL (NEGATIVE); APPEARANCE, URINE TURBID (CLEAR); BACTERIA, URINE AUTO NEGATIVE (NEGATIVE); BILIRUBIN, URINE AUTO NEGATIVE (NEGATIVE); BLOOD, URINE BLOOD NEGATIVE (NEGATIVE); GLUCOSE, URINE (UA) AUTO NEGATIVE (NEGATIVE); KETONE, URINE AUTO NEGATIVE (NEGATIVE); LEUKOCYTE ESTERASE, URINE AUTO NEGATIVE (NEGATIVE); NITRITE, URINE AUTO NEGATIVE (NEGATIVE); PROTEIN, URINE AUTO NEGATIVE (NEGATIVE); RBC, URINE AUTO 0 /HPF (0-3); SPECIFIC GRAVITY URINE AUTO 1.019 (1.002-1.035); SQUAMOUS EPITHELIAL CELL UR AU 16 /HPF (0-6); UROBILINOGEN, URINE AUTO 0.2 mg/dL (0.0-2.0); WBC, URINE AUTO 0 /HPF (0-3)
[2021-04-22 18:38] LABS: COLOR, URINE YELLOW (YELLOW)
== END ==
LOC: M SFHCWAGY 16:45
PROVIDERS: ATTEND Advanced Practice Midwife
DX: N39.0 Urinary tract infection, site not specified (principal)

== ENCOUNTER → 2021-06-07 | Outpatient (CLI) | payer OTHER, MEDICAID ==
[~2021-06-07] MED LIST changes: +ACET-683 PO; +IBUP-1022 PO
== END ==
LOC: M WHC 08:58
PROVIDERS: ATTEND Advanced Practice Midwife
DX: O99.342 Other mental disorders complicating pregnancy, second trimester (principal); Z3A.28 28 weeks gestation of pregnancy

== ENCOUNTER → 2021-07-04 | Outpatient (CLI) | payer OTHER ==
[2021-07-04 13:46] LABS: HEMATOCRIT 34.2 % (36.0-47.0); HEMOGLOBIN 11.2 g/dl (12.0-15.5); MEAN CORPUSCULAR HEMOGLOBIN 29.2 pg (27.0-33.0); MEAN CORPUSCULAR HGB CONC 32.7 g/dl (32.0-36.5); MEAN CORPUSCULAR VOLUME 89.3 fl (80.0-96.0); PLATELET COUNT, AUTOMATED 225 10^3/uL (150-450); RED BLOOD COUNT 3.83 10^6/uL (4.00-5.40); WHITE BLOOD COUNT 8.6 10^3/uL (4.0-10.0)
== END ==
LOC: M PLALAB 10:36
PROVIDERS: ATTEND Advanced Practice Midwife
DX: O99.342 Other mental disorders complicating pregnancy, second trimester (principal)

== ENCOUNTER → 2021-07-06 | Outpatient (CLI) | payer OTHER, MEDICAID ==
[~2021-07-06] MED LIST changes: -ACET-683 PO; -IBUP-1022 PO
--- NOTE | 2021-07-06 09:45 | REP ---
INDICATION: F/U ANATOMY COMPARISON: 06/07/2021 TECHNIQUE: Transabdominal obstetrical ultrasound with color Doppler evaluation. FINDINGS: Examination demonstrates a single live intrauterine in cephalic presentation. motion is identified by technologist. Placenta is noted anterior and grade 1 without evidence for placenta previa or abruption. Amniotic fluid volume is normal. Cervix measures 4.5 cm in length and appears closed.. Selected gestational age: 32 weeks 5 days with CLIFFORD 08/26/2021. Gestational age by current measurements 32 weeks 6 days with CLIFFORD 08/25/2021. FHR equals 127 beats per minute. Estimated weight 2003 grams (37thpercentile). Anatomical assessment demonstrates normal structures including four-chamber heart/ventricular outflow tracts and spine. IMPRESSION: Single live intrauterine in cephalic presentation demonstrating appropriate estimated weight and growth. In conjunction with prior examination anatomical assessment is complete and normal. <Electronically signed by Franklyn Cruz > 07/06/21 [id number]
== END ==
LOC: M WHC 08:55
PROVIDERS: ATTEND Advanced Practice Midwife
DX: Z36.2 Encounter for other antenatal screening follow-up (principal); O34.211 Maternal care for low transverse scar from previous cesarean delivery; O99.212 Obesity complicating pregnancy, second trimester; Z3A.32 32 weeks gestation of pregnancy

== ENCOUNTER → 2021-08-11 | Outpatient (REF) | payer OTHER, MEDICAID | LOC: M SFHCWAGY 16:46 | PROVIDERS: ATTEND Advanced Practice Midwife | DX: Z36.85 Encounter for antenatal screening for Streptococcus B (principal) ==

== ENCOUNTER → 2021-08-11 | Outpatient (REF) | payer OTHER, MEDICAID | LOC: M PLALAB 14:29 | PROVIDERS: ATTEND Advanced Practice Midwife | DX: Z53.9 Procedure and treatment not carried out, unspecified reason (principal) ==

== ENCOUNTER → 2021-12-21 | Outpatient (CLI) | payer OTHER ==
[~2021-12-21] MED LIST changes: +ACET-683 PO; +IBUP-1022 PO; +ISOVUE-300 61% 50ML VIAL As Ordered ONE; +LIDOCAINE 1% MDV 20ML VIAL As Ordered ONE; +PROHANCE 279.3MG/ML 5ML VIAL As Ordered ONE
== END ==
LOC: M RAD 06:23
PROVIDERS: ATTEND Physician Assistant
DX: M25.512 Pain in left shoulder (principal)
CPT/HCPCS: 73223; 77002; A9576; Q9967

== ENCOUNTER → 2023-07-27 | Outpatient (REF) | payer OTHER, MEDICAID ==
[~2023-07-27] MED LIST changes: -ISOVUE-300 61% 50ML VIAL As Ordered ONE; -LIDOCAINE 1% MDV 20ML VIAL As Ordered ONE; -PROHANCE 279.3MG/ML 5ML VIAL As Ordered ONE
== END ==
LOC: M PLALAB 14:02
PROVIDERS: ATTEND Obstetrics & Gynecology
DX: Z12.4 Encounter for screening for malignant neoplasm of cervix (principal)

== ENCOUNTER → 2023-08-09 | Outpatient (CLI) | payer MEDICAID, OTHER | LOC: M RAD 15:54 | PROVIDERS: ATTEND Obstetrics & Gynecology | DX: Z30.431 Encounter for routine checking of intrauterine contraceptive device (principal); R10.2 Pelvic and perineal pain ==

== ENCOUNTER → 2023-08-10 | Outpatient (CLI) | payer OTHER | LOC: M RAD 15:32 | PROVIDERS: ATTEND Obstetrics & Gynecology | DX: T83.32XD Displacement of intrauterine contraceptive device, subsequent encounter (principal) ==

== ENCOUNTER → 2023-08-30 | Outpatient (REF) | LOC: M EMP 11:09 | PROVIDERS: ATTEND Family Medicine | DX: Z11.52 Encounter for screening for COVID-19 (principal) ==

== ENCOUNTER → 2023-08-30 | Outpatient (REF) | LOC: M EMP 12:58 | PROVIDERS: ATTEND Family Medicine | DX: Z11.52 Encounter for screening for COVID-19 (principal) ==

== ENCOUNTER 2023-09-27 18:06 | Emergency (ER) | payer OTHER ==
[~2023-09-27] VITALS: Ht 165.1 cm; Wt 121.5 kg
[2023-09-27] MEDS ORDERED: METF-1191 PO (18:23)
[2023-09-27] MEDS ORDERED: SERT-141 PO (18:23)
[2023-09-27] MEDS ORDERED: OMEP40CA4 PO (18:23)
[2023-09-27 20:21] LABS: BASO % 0.5 % (0.0-1.0); EOS # 0.2 10^3/uL (0.0-0.5); EOS % 1.8 % (0.0-3.0); HEMATOCRIT 40.5 % (36.0-47.0); HEMOGLOBIN 13.4 g/dl (12.0-15.5); LYMPH # 2.6 10^3/uL (1.5-5.0); LYMPH % 30.6 % (24.0-44.0); MEAN CORPUSCULAR HEMOGLOBIN 29.4 pg (27.0-33.0); MEAN CORPUSCULAR HGB CONC 33.1 g/dl (32.0-36.5); MEAN CORPUSCULAR VOLUME 88.8 fl (80.0-96.0); MONO # 0.5 10^3/uL (0.0-0.8); MONO % 5.5 % (2.0-8.0); NEUTROPHILS # 5.2 10^3/uL (1.5-8.5); NEUTROPHILS % 61.4 % (36.0-66.0); PLATELET COUNT, AUTOMATED 289 10^3/uL (150-450); RED BLOOD COUNT 4.56 10^6/uL (4.00-5.40); WHITE BLOOD COUNT 8.4 10^3/uL (4.0-10.0)
[2023-09-27 20:38] LABS: ALBUMIN 3.9 G/DL (3.2-5.2); ALKALINE PHOSPHATASE 85 U/L (46-116); ALT/SGPT 17 U/L (7.0-40); AST/SGOT 10 U/L (<34); BILIRUBIN,TOTAL 0.3 MG/DL (0.3-1.2); BLOOD UREA NITROGEN 13 MG/DL (9-23); CALCIUM LEVEL 8.9 MG/DL (8.5-10.1); CARBON DIOXIDE LEVEL 26 MMOL/L (20-31); CHLORIDE LEVEL 109 MMOL/L (98-107); CREATININE FOR GFR 0.68 MG/DL (0.55-1.30); GLOMERULAR FILTRATION RATE > 60.0 (>60); GLUCOSE, FASTING 86 MG/DL (60-100); POTASSIUM SERUM 4.1 MMOL/L (3.5-5.1); SODIUM LEVEL 140 MMOL/L (136-145); TOTAL PROTEIN 7.1 G/DL (5.7-8.2)
[2023-09-27 20:40] LABS: HEPATITIS B SURFACE ANTIBODY POSITIVE (POSITIVE)
[2023-09-27 20:55] VITALS: BP 127/80; TEMP 98; O2SAT 99
[2023-09-27 21:05] LABS: HIV SCREEN CENTAUR EXPOSED NEGATIVE (NEGATIVE)
[2023-09-27 21:14] LABS: HEPATITIS C VIRUS ABY INDEX < 0.02 INDEX (<0.8)
== END 2023-09-27 20:58 | disposition home or self-care (01) ==
LOC: M ED 18:06
DX: Z77.21 Contact with and (suspected) exposure to potentially hazardous body fluids (principal)

== ENCOUNTER → 2023-11-22 | Outpatient (CLI) | payer OTHER, MEDICAID ==
[~2023-11-22] MED LIST changes: +METF-1191 PO; +OMEP40CA4 PO; +SERT-141 PO
[2023-11-22 13:13] LABS: HEMOGLOBIN 13.2 g/dl (12.0-15.5); MEAN CORPUSCULAR HEMOGLOBIN 30.8 pg (27.0-33.0); MEAN CORPUSCULAR HGB CONC 35.7 g/dl (32.0-36.5); MEAN CORPUSCULAR VOLUME 86.2 fl (80.0-96.0); PLATELET COUNT, AUTOMATED 231 10^3/uL (150-450); RED BLOOD COUNT 4.29 10^6/uL (4.00-5.40); WHITE BLOOD COUNT 6.7 10^3/uL (4.0-10.0)
[2023-11-22 13:49] LABS: HEMOGLOBIN A1c 4.9 % (4.0-6.0)
[2023-11-22 14:15] LABS: HIV 1&2 SCREEN NEGATIVE (NEGATIVE)
[2023-11-22 14:23] LABS: HEPATITIS C VIRUS ABY INDEX < 0.02 INDEX (<0.8)
[2023-11-22 15:02] LABS: GC DNA AMPLIFICATION NEGATIVE (NEGATIVE)
== END ==
LOC: M LAB 11:52
PROVIDERS: ATTEND Advanced Practice Midwife
DX: Z34.81 Encounter for supervision of other normal pregnancy, first trimester (principal)

== ENCOUNTER → 2023-12-11 | Outpatient (CLI) | payer MEDICAID, OTHER | LOC: M LAB 13:32 | PROVIDERS: ATTEND Advanced Practice Midwife | DX: Z34.81 Encounter for supervision of other normal pregnancy, first trimester (principal) ==

== ENCOUNTER → 2024-01-31 | Outpatient (CLI) | payer MEDICAID, OTHER | LOC: M RAD 12:18 | PROVIDERS: ATTEND Obstetrics & Gynecology | DX: O34.211 Maternal care for low transverse scar from previous cesarean delivery (principal); Z3A.21 21 weeks gestation of pregnancy ==

== ENCOUNTER → 2024-03-03 | Outpatient (CLI) | payer OTHER, MEDICAID ==
[2024-03-03 16:19] LABS: HEMOGLOBIN 12.1 g/dl (12.0-15.5); MEAN CORPUSCULAR HEMOGLOBIN 30.7 pg (27.0-33.0); MEAN CORPUSCULAR HGB CONC 34.6 g/dl (32.0-36.5); MEAN CORPUSCULAR VOLUME 88.8 fl (80.0-96.0); PLATELET COUNT, AUTOMATED 233 10^3/uL (150-450); RED BLOOD COUNT 3.94 10^6/uL (4.00-5.40)
[2024-03-03 16:55] LABS: GLUCOSE CHALLENGE TEST 1 HOUR 134 MG/DL (LESS THAN 140)
[2024-03-03 17:30] LABS: HIV 1&2 SCREEN NEGATIVE (NEGATIVE)
[2024-03-03 17:38] LABS: HEPATITIS C VIRUS ABY INDEX < 0.02 INDEX (<0.8)
[2024-03-03 18:04] LABS: GC DNA AMPLIFICATION NEGATIVE (NEGATIVE)
== END ==
LOC: M LAB 14:30
PROVIDERS: ATTEND Obstetrics & Gynecology
DX: O34.211 Maternal care for low transverse scar from previous cesarean delivery (principal); Z3A.00 Weeks of gestation of pregnancy not specified

== ENCOUNTER → 2024-04-17 | Outpatient (REF) | LOC: M EMP 14:54 | PROVIDERS: ATTEND Family Medicine | DX: Z11.52 Encounter for screening for COVID-19 (principal) ==

== ENCOUNTER → 2024-05-15 | Outpatient (REF) | payer OTHER, MEDICAID | LOC: M PLALAB 13:01 | PROVIDERS: ATTEND Advanced Practice Midwife | DX: O34.211 Maternal care for low transverse scar from previous cesarean delivery (principal); Z3A.00 Weeks of gestation of pregnancy not specified ==

== ENCOUNTER 2024-06-15 08:26 | Inpatient (IN) | payer OTHER, MEDICAID ==
[2024-06-15] VITALS (36 sets, daily range): BP systolic 104–170; BP diastolic 55–82; O2SAT 98–100
[~2024-06-15] VITALS: Ht 165.1 cm; Wt 124.6 kg
[2024-06-15] MEDS ORDERED: ACET-897 PO (09:15)
[2024-06-15] MEDS ORDERED: PEPTO BISMAL PO (09:15)
[2024-06-15] MEDS ORDERED: OMEP10CASR PO (09:15)
[2024-06-15] MEDS ORDERED: METF10004 PO (09:15)
[2024-06-15 10:19] LABS: HEMATOCRIT 34.1 % (36.0-47.0); HEMOGLOBIN 11.1 g/dl (12.0-15.5); MEAN CORPUSCULAR HGB CONC 32.6 g/dl (32.0-36.5); PLATELET COUNT, AUTOMATED 230 10^3/uL (150-450); RED BLOOD COUNT 4.11 10^6/uL (4.00-5.40); WHITE BLOOD COUNT 7.2 10^3/uL (4.0-10.0)
[2024-06-15] MEDS ORDERED: METHYLERGONOVINE MALEATE 0.2MG/ML 1ML VIAL IM PRN (10:40)
[2024-06-15] MEDS ORDERED: TRANEXAMIC ACID INJection 1,000 MG in NS 100 ML IV PRN (10:40)
[2024-06-15] MEDS ORDERED: OXYTOCIN DRIP 30 UNITS in IV 1 EA IV PRN (10:40)
[2024-06-15] MEDS ORDERED: CARBOPROST TROMETHAMINE 250 MCG/ML AMP IM PRN (10:40)
[2024-06-15 11:28] LABS: HEPATITIS C VIRUS ABY INDEX < 0.02 INDEX (<0.8)
[2024-06-15] MEDS ORDERED: HOME MED LIST COMPLETE! XX SCH (14:40)
[2024-06-15] MEDS: LACTATED RINGER'S 1000 ML IV PRN (18:08)
[2024-06-15] MEDS ORDERED: FENTANYL 2MCG/ML ROPIVACAINE 0.2% IN 0.9% NACL 100ML IVBAG As Ordered ONE (18:32)
[2024-06-15] MEDS ORDERED: EPIDURAL/PCA KEYS XX PRN (18:40)
[2024-06-15] MEDS ORDERED: diphenhydrAMINE 50MG/ML VIAL IV PRN (18:40)
[2024-06-15] MEDS ORDERED: ePHEDrine SULFATE 25 MG/5 ML(5MG/ML) SYRINGE IVP PRN (18:40)
[2024-06-15] MEDS ORDERED: NALOXONE INJ 0.4MG/1ML VIAL IV PRN (18:40)
[2024-06-15] MEDS ORDERED: LR 500 ML IV PRN (18:40)
[2024-06-15] MEDS: FENTANYL/ROPIVACAINE/NACL BAG 100 ML EPIDURAL SCH (19:29)
[2024-06-15] MEDS ORDERED: BICITRA 30ML SOLN UDC PO ONE (19:55)
[2024-06-15] MEDS ORDERED: CLINDAMYCIN 900 MG in IV 1 EA IV ONE (19:55)
[2024-06-15] MEDS ORDERED: OMEPRAZOLE 20MG CAP PO SCH (21:00)
[2024-06-15] MEDS: OMEPRAZOLE 20MG CAP PO SCH (21:00)
[2024-06-15] MEDS: SERTRALINE 100 MG TAB PO SCH (21:12)
[2024-06-16] VITALS (27 sets, daily range): BP systolic 100–140; BP diastolic 53–91; O2SAT 96–97
[2024-06-16 06:22] LABS: HEMATOCRIT 32.3 % (36.0-47.0); HEMOGLOBIN 10.3 g/dl (12.0-15.5); MEAN CORPUSCULAR HEMOGLOBIN 26.9 pg (27.0-33.0); MEAN CORPUSCULAR HGB CONC 31.9 g/dl (32.0-36.5); MEAN CORPUSCULAR VOLUME 84.3 fl (80.0-96.0); PLATELET COUNT, AUTOMATED 207 10^3/uL (150-450); RED BLOOD COUNT 3.83 10^6/uL (4.00-5.40); WHITE BLOOD COUNT 8.6 10^3/uL (4.0-10.0)
[2024-06-16] MEDS ORDERED: GENTAMICIN 400 MG in D5W 50 ML IV ONE (07:00)
[2024-06-16] MEDS ORDERED: CLINDAMYCIN 900 MG in IV 1 EA IV ONE (07:00)
[2024-06-16] MEDS ORDERED: BICITRA 30ML SOLN UDC PO ONE (07:00)
[2024-06-16] MEDS: ONDANSETRON 4MG 2ML VIAL IV PRN (08:05)
[2024-06-16] MEDS ORDERED: LIDOCAINE 1% MDV 20ML VIAL INFIL PRN (10:05)
[2024-06-16] MEDS ORDERED: ceFAZolin SOD 3 GM IV Place Holder IV ONE (10:05)
[2024-06-16 10:47] LABS: HEMOGLOBIN 10.4 g/dl (12.0-15.5); MEAN CORPUSCULAR HEMOGLOBIN 27.1 pg (27.0-33.0); MEAN CORPUSCULAR HGB CONC 32.5 g/dl (32.0-36.5); MEAN CORPUSCULAR VOLUME 83.3 fl (80.0-96.0); PLATELET COUNT, AUTOMATED 187 10^3/uL (150-450); RED BLOOD COUNT 3.84 10^6/uL (4.00-5.40); WHITE BLOOD COUNT 8.9 10^3/uL (4.0-10.0)
[2024-06-16] MEDS: AZITHROMYCIN INJ 500 MG, VIAL MATE ADAPTER 1 EACH in NS 250 ML IV ONE (11:03)
[2024-06-16] MEDS: BICITRA 30ML SOLN UDC PO ONE (11:03)
[2024-06-16] MEDS: ceFAZolin SOD 2 GM in IV 1 EA IV ONE (11:04)
[2024-06-16] MEDS: ceFAZolin SOD 1 GM in DEXTROSE 5% (D5W) ADV/MINI-BAG 50 ML IV ONE (11:04)
[2024-06-16] MEDS ORDERED: MORPHINE PRES-FREE INJ 10 MG/10 ML VIAL As Ordered ONE (12:42)
[2024-06-16] MEDS ORDERED: diphenhydrAMINE 50MG/ML VIAL As Ordered ONE (13:10)
[2024-06-16] MEDS ORDERED: OXYTOCIN INJ 10UNITS/ML 1ML VIAL As Ordered ONE (13:10)
[2024-06-16] MEDS ORDERED: ONDANSETRON 4MG 2ML VIAL As Ordered ONE (13:10)
[2024-06-16] MEDS ORDERED: KETAMINE HCL 200MG/20ML VIAL As Ordered ONE (13:17)
[2024-06-16 13:22] LABS: CORD GAS ABE V -1.7; CORD GAS HCO3 V 23.7 MMOL/L; CORD GAS O2 SAT V 47.4 %; CORD GAS PCO2 V 42.4 mmHg; CORD GAS PH V 7.365 UNITS; CORD GAS PO2 V 19.5 mmHg; CORD GAS SBC V 21.8 MMOL/L
[2024-06-16 13:25] LABS: CORD GAS ABE A -3.1; CORD GAS HCO3 A 24.4 MMOL/L; CORD GAS O2 SAT A 37.7 %; CORD GAS PCO2 A 53.2 mmHg; CORD GAS PH A 7.279 UNITS; CORD GAS PO2 A 17.6 mmHg; CORD GAS SBC A 20.4 MMOL/L
[2024-06-16] MEDS ORDERED: MIDAZOLAM INJ 2MG/2ML VIAL As Ordered ONE (13:35)
[2024-06-16] MEDS ORDERED: LIDOCAINE PRES-FREE 2% 10ML AMP As Ordered ONE (13:39)
[2024-06-16] MEDS ORDERED: MAGNESIUM *L&D* 4GM/100ML BAG (40MG/ML) As Ordered ONE (14:01)
[2024-06-16] MEDS: MAG Sulf (OBGYN) 20GM/500ML 20,000 MG in IV 1 EA IV SCH (14:15)
[2024-06-16] MEDS ORDERED: OXYTOCIN 30UNITS IN 0.9% NaCl 500ML IV BAG As Ordered ONE (14:18)
[2024-06-16] MEDS ORDERED: RHOGAM 300MCG (1500IU) INJ IM SCH (14:20)
[2024-06-16] MEDS ORDERED: PROMETHAZINE 25 MG TAB PO PRN (14:20)
[2024-06-16] MEDS ORDERED: METOCLOPRAMIDE INJ 10MG/2ML VIAL IV PRN (14:20)
[2024-06-16] MEDS ORDERED: MOM 30ML SUSPENSION UDC PO PRN (14:20)
[2024-06-16] MEDS ORDERED: MAGNESIUM SULFATE 4% INJ 20GM/500ML (40MG/ML) As Ordered ONE (14:27)
[2024-06-16 14:31] LABS: HEMATOCRIT 33.1 % (36.0-47.0); HEMOGLOBIN 10.6 g/dl (12.0-15.5); MEAN CORPUSCULAR HEMOGLOBIN 26.8 pg (27.0-33.0); MEAN CORPUSCULAR VOLUME 83.8 fl (80.0-96.0); PLATELET COUNT, AUTOMATED 199 10^3/uL (150-450); RED BLOOD COUNT 3.95 10^6/uL (4.00-5.40); WHITE BLOOD COUNT 11.6 10^3/uL (4.0-10.0)
[2024-06-16] MEDS: MAGNESIUM *L&D* 4GM/100ML BAG (40MG/ML) IV ONE (14:33)
[2024-06-16] MEDS: OXYTOCIN DRIP 30 UNITS in IV 1 EA IV PRN (14:33)
[2024-06-16 15:21] LABS: URIC ACID 4.8 MG/DL (3.1-7.8)
[2024-06-16 15:23] LABS: LDH LACTATE DEHYDROGENASE 164 U/L (120-246)
[2024-06-16 15:24] LABS: ALT/SGPT < 9 U/L (7.0-40); AST/SGOT 14 U/L (<34); BILIRUBIN,TOTAL 0.4 MG/DL (0.3-1.2); CREATININE FOR GFR 0.47 MG/DL (0.55-1.30); GLOMERULAR FILTRATION RATE > 60.0 (>60)
[2024-06-16] MEDS: KETOROLAC 30 MG/ML 1ML VIAL IV SCH (19:51)
[2024-06-16] MEDS: ENOXAPARIN 30MG/0.3ML SYRINGE (J1650 PER 10MG) SC SCH (21:16)
[2024-06-17] VITALS (7 sets, daily range): BP systolic 122–138; BP diastolic 64–79; TEMP 97.2; O2SAT 95–99
[2024-06-17] MEDS: PERCOCET 5MG/325MG TAB PO PRN ×2 (00:38→17:24)
[2024-06-17] MEDS: PRENATAL VITAMINS CHEWABLE TABLET PO SCH (08:18)
[2024-06-17 09:04] LABS: HEMATOCRIT 27.9 % (36.0-47.0); MEAN CORPUSCULAR HGB CONC 32.3 g/dl (32.0-36.5); MEAN CORPUSCULAR VOLUME 83.8 fl (80.0-96.0); PLATELET COUNT, AUTOMATED 173 10^3/uL (150-450); RED BLOOD COUNT 3.33 10^6/uL (4.00-5.40); WHITE BLOOD COUNT 7.6 10^3/uL (4.0-10.0)
[2024-06-17] MEDS: IBUPROFEN 800 MG TAB PO SCH (15:45)
[2024-06-17] MEDS: SIMETHICONE 80MG CHEW TAB PO PRN (21:46)
[2024-06-18 02:00] VITALS: BP 104/51; O2SAT 95
[2024-06-18 06:00] VITALS: BP 120/58; O2SAT 97
[2024-06-18] MEDS: DOCUSATE SODIUM 100MG CAPSULE PO PRN (06:36)
[2024-06-18] MEDS: MEASLES,MUMPS,RUBELLA VACCINE INJ (MMR-II) SC.IMMUN ONE (07:54)
[2024-06-18 11:05] VITALS: BP 132/62; O2SAT 98
[2024-06-18] MEDS ORDERED: COLA100C5 PO (13:50)
[2024-06-18] MEDS ORDERED: IBUP80TA PO (13:50)
[2024-06-18] MEDS ORDERED: OXYC1TAB23 PO (13:51)
== END 2024-06-18 16:47 | disposition home or self-care (01) | DRG 785 ==
LOC: M OBS 08:26 → M LDI 08:52 → M OBS 06-16 16:31
PROVIDERS: ADMIT Obstetrics & Gynecology; ATTEND Obstetrics & Gynecology
PROC: 0UB70ZZ Excision of Bilateral Fallopian Tubes, Open Approach (ICD-10-PCS; 2024-06-16)
PROC: 10D00Z1 Extraction of Products of Conception, Low, Open Approach (ICD-10-PCS; principal; 2024-06-16 12:00)
DX: O34.211 Maternal care for low transverse scar from previous cesarean delivery (principal); O48.0 Post-term pregnancy; Z88.0 Allergy status to penicillin; Z37.0 Single live birth; Z3A.40 40 weeks gestation of pregnancy; Z30.2 Encounter for sterilization